=== PATIENT | male | born 1950 | race Caucasian/White ===

== ENCOUNTER 2020-10-21 16:43 | Emergency (ER) | payer SELFPAY ==
[~2020-10-21] VITALS: Ht 165.1 cm; Wt 68.0 kg
--- NOTE | 2020-10-21 17:00 | NUR ---
DR. BEARDEN AT BEDSIDE FOR EVAL.
--- NOTE | 2020-10-21 17:10 | NUR ---
diffuse abdominal pain w/ nausea and vomiting x 5 days. Patient a/ox4, south [place] speaking. Changed into a gown, attached to the traffic monitor specialist.
[2020-10-21] MEDS ORDERED: ONDANSETRON HCL/PF 4 MG/2 ML VIAL ONE (17:23)
[2020-10-21] MEDS ORDERED: ONDANSETRON HCL/PF 4 MG/2 ML VIAL IVP ONE (17:30)
[2020-10-21] MEDS ORDERED: IV NS 0.9% 1,000 ML BAG IV ONE (17:30)
[2020-10-21 17:44] LABS: BASOPHILS % (AUTO) 0.4 % (0.0-2.0); EOSINOPHILS % (AUTO) 0.1 % (0.0-6.0); HEMATOCRIT 44 % (39-51); HEMOGLOBIN 15.5 g/dL (13.5-17.5); LYMPHOCYTES # (AUTO) 1.3 /CMM (0.8-4.8); LYMPHOCYTES % (AUTO) 16.3 % (20.0-44.0); MEAN CORPUSCULAR HGB CONC 35 g/dl (31.0-36.0); MEAN CORPUSCULAR VOLUME 98 fL (80-96); MONOCYTES # (AUTO) 1.3 /CMM (0.1-1.30); MONOCYTES % (AUTO) 16.2 % (2.0-12.0); NEUTROPHILS # (AUTO) 5.2 /CMM (1.8-8.9); PLATELET COUNT (AUTO) 320 /CMM (150-450); RED BLOOD CELL COUNT(AUTO) 4.46 MIL/uL (4.5-6.0); WHITE BLOOD COUNT (AUTO) 7.8 K/uL (4.3-11.0)
--- NOTE | 2020-10-21 17:45 | NUR ---
PATIENT TAKEN TO CT.
--- NOTE | 2020-10-21 17:50 | NUR ---
PATIENT GIVEN A URINAL, PATIENT UNABLE TO PROVIDE A URINE SAMPLE AT THIS TIME.
[2020-10-21 18:02] LABS: ALBUMIN 2.9 g/dL (3.4-5.0); BILIRUBIN,DIRECT 0.5 mg/dL (0.0-0.2); BILIRUBIN,TOTAL 1.2 mg/dL (0.2-1.0); CALCIUM, SERUM 8.6 mg/dL (8.5-10.1); POTASSIUM 3.2 mmol/L (3.5-5.1); TOTAL PROTEIN, SERUM 7.2 g/dL (6.4-8.2)
[2020-10-21] MEDS ORDERED: ONDA4TAB11 PO (18:44)
[2020-10-21 18:59] VITALS: BP 120/70
[2020-10-21 19:06] LABS: LYMPHOCYTES % (MANUAL) 24 % (16-48); MONOCYTES % (MANUAL) 8 % (0-11.0); NEUTROPHILS % (MANUAL) 68 (42-76)
== END 2020-10-21 18:59 | disposition home or self-care (01) ==
LOC: ER 16:48
DX: R11.2 Nausea with vomiting, unspecified (principal); F17.200 Nicotine dependence, unspecified, uncomplicated; Z88.5 Allergy status to narcotic agent
CPT/HCPCS: 80048; 80076; 83690; 85007; 85025; 96361; 96374; 99283; J2405; J7030